=== PATIENT | female | born 1945 | race Caucasian/White ===

== ENCOUNTER 2017-07-12 12:21 | Inpatient (IN) | payer MEDICARE, OTHER ==
[~2017-07-12 12:21] MED LIST: ATOR20TA42 PO; HYDR-2768 PO; IRBE150T49 PO; PIOG15 PO; PRIL20CA PO; ROPI2 PO; SOMA350T PO; [UNRECOGNIZED DRUG - OTHER] PO
[2017-07-12 12:45] VITALS: BP 120/74; PULSE 104; RESP 20; TEMP 97.9; O2SAT 99
[2017-07-12] MEDS ORDERED: NALO1TAB PO (13:07)
[2017-07-12] MEDS ORDERED: OMEP10CA PO (13:07)
[2017-07-12] MEDS ORDERED: DILAUDID PAIN PUMP (13:07)
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
[2017-07-12] MEDS ORDERED: PANTOPRAZOLE SODIUM 40 MG VIAL IV PUSH ONE (13:45)
[2017-07-12] MEDS ORDERED: ONDANSETRON ODT 4 MG TAB PO ONE (13:45)
[2017-07-12 14:17] LABS: AUTOMATED NEUTROPHIL # 13.4 TH/MM3 (1.8-7.7); BASOPHIL # 0.1 TH/MM3 (0-0.2); BASOPHIL % 0.8 % (0.0-2.0); EOSINOPHIL % 0.2 % (0.0-4.0); HEMATOCRIT 33.8 % (35.0-46.0); HEMO FLAGS DIFF FINAL; LYMPH % 11.5 % (9.0-44.0); LYMPHOCYTE # 1.9 TH/MM3 (1.0-4.8); MEAN CELL VOLUME 81.2 FL (80.0-100.0); MEAN CORPUSCULAR HEMOGLOBIN 28.1 PG (27.0-34.0); MEAN CORPUSCULAR HGB CONC 34.6 % (32.0-36.0); MONO % 5.9 % (0.0-8.0); NEUT % 81.6 % (16.0-70.0); PLATELET COUNT 399 TH/MM3 (150-450); RED BLOOD COUNT 4.16 MIL/MM3 (4.00-5.30); WHITE BLOOD COUNT 16.4 TH/MM3 (4.0-11.0)
[2017-07-12 14:53] LABS: ACETAMINOPHEN 4.8 MCG/ML (10.0-30.0); ALKALINE PHOSPHATASE 71 U/L (45-117); ALT (GPT) 35 U/L (10-53); ANION GAP 9 MEQ/L (5-15); AST (GOT) 51 U/L (15-37); BLOOD UREA NITROGEN 17 MG/DL (7-18); CHLORIDE 86 MEQ/L (98-107); GLOMERULAR FILTRATION RATE 44 ML/MIN (>89); SODIUM (NA) 128 MEQ/L (136-145); TOTAL BILIRUBIN ADULT 0.5 MG/DL (0.2-1.0)
[2017-07-12 15:00] LABS: ALCOHOL LESS THAN 3 MG/DL (0-5)
[2017-07-12 15:03] LABS: POTASSIUM 2.2 MEQ/L (3.5-5.1)
[2017-07-12] MEDS ORDERED: POTASSIUM CHLORIDE 20 MEQ CONTROLLED RELEASE TAB PO ONE (15:15)
[2017-07-12 16:13] LABS: BLOOD, URINE NEG (NEG); COMMENT (UR) CULT NOT INDICATED; CULTURE IF INDICATED CULT NOT INDICATED; GLUCOSE,URINE NEG (NEG); KETONE, URINE NEG (NEG); NITRITE,URINE NEG (NEG); SQUAMOUS EPITHELIAL CELL URINE <1 /hpf (0-5); URINE COLOR LIGHT-YELLOW (YELLW/STRAW)
[2017-07-12 16:27] VITALS: BP 137/77; PULSE 88; RESP 18; O2SAT 99
--- NOTE | 2017-07-12 16:36 | PD ---
Physical Exam Date Seen by Provider: Jul 12, 2017 Time Seen by Provider: 16:25 Narrative 72-year-old Crowley act patient previously seen by Yue CANALES, in the ambulance [facility], with reports of homicidal and suicidal ideation, coffee-ground emesis, presumed GI bleed, and possible overdose of Percocet. Noted to be hyponatremic with a sodium 126, and a potassium of 2.2. His been given potassium as well as pantoprazole IV. First Tylenol level is normal at 7.4. The rest of her drug screen and aspirin level is normal. Data Data Last Documented VS Vital Signs Date Time Temp Pulse Resp B/P (MAP) Pulse Ox O2 Delivery O2 Flow Rate FiO2 07/12/17 16:27 88 18 137/77 (97) 99 Room Air 07/12/17 12:45 97.9 Orders Orders Complete Blood Count With Diff (07/12/17 12:45) Comprehensive Metabolic Panel (07/12/17 12:45) Urinalysis - C+S If Indicated (07/12/17 12:45) Psych Screen (07/12/17 12:45) Drug Screen, Random Urine (07/12/17 12:45) Alcohol (Ethanol) (07/12/17 12:45) Salicylates (Aspirin) (07/12/17 12:45) Tylenol (Acetaminophen) (07/12/17 12:45) Electrocardiogram (07/12/17 ) Ondansetron Odt (Zofran Odt) (07/12/17 13:45) Iv Access Insert/Monitor (07/12/17 13:33) Call Poison Control (07/12/17 13:33) Pantoprazole Inj (Protonix Inj) (07/12/17 13:45) Potassium Chloride (Kcl) (07/12/17 15:15) Labs Laboratory Tests Test 07/12/17 13:48 07/12/17 13:51 07/12/17 15:49 Salicylates Level 7.8 MG/DL White Blood Count 16.4 TH/MM3 Red Blood Count 4.16 MIL/MM3 Hemoglobin 11.7 GM/DL Hematocrit 33.8 % Mean Corpuscular Volume 81.2 FL Mean Corpuscular Hemoglobin 28.1 PG Mean Corpuscular Hemoglobin Concent 34.6 % Red Cell Distribution Width 15.0 % Platelet Count 399 TH/MM3 Mean Platelet Volume 8.0 FL Neutrophils (%) (Auto) 81.6 % Lymphocytes (%) (Auto) 11.5 % Monocytes (%) (Auto) 5.9 % Eosinophils (%) (Auto) 0.2 % Basophils (%) (Auto) 0.8 % Neutrophils # (Auto) 13.4 TH/MM3 Lymphocytes # (Auto) 1.9 TH/MM3 Monocytes # (Auto) 1.0 TH/MM3 Eosinophils # (Auto) 0.0 TH/MM3 Basophils # (Auto) 0.1 TH/MM3 CBC Comment DIFF FINAL Differential Comment Blood Urea Nitrogen 17 MG/DL Creatinine 1.20 MG/DL Random Glucose 125 MG/DL Total Protein 9.2 GM/DL Albumin 4.4 GM/DL Calcium Level 10.0 MG/DL Alkaline Phosphatase 71 U/L Aspartate Amino Transf (AST/SGOT) 51 U/L Alanine Aminotransferase (ALT/SGPT) 35 U/L Total Bilirubin 0.5 MG/DL Sodium Level 128 MEQ/L Potassium Level 2.2 MEQ/L Chloride Level 86 MEQ/L Carbon Dioxide Level 33.0 MEQ/L Anion Gap 9 MEQ/L Estimat Glomerular Filtration Rate 44 ML/MIN Acetaminophen Level 4.8 MCG/ML Ethyl Alcohol Level LESS THAN 3 MG/DL Urine Color LIGHT-YELLOW Urine Turbidity CLEAR Urine pH 6.0 Urine Specific [place] 1.007 Urine Protein NEG mg/dL Urine Glucose (UA) NEG mg/dL Urine Ketones NEG mg/dL Urine Occult Blood NEG Urine Nitrite NEG Urine Bilirubin NEG Urine Urobilinogen LESS THAN 2.0 MG/DL Urine Leukocyte Esterase NEG Urine RBC LESS THAN 1 /hpf Urine WBC LESS THAN 1 /hpf Urine Squamous Epithelial Cells <1 /hpf Urine Amorphous Sediment RARE Microscopic Urinalysis Comment CULT NOT INDICATED Urine Opiates Screen NEG Urine Barbiturates Screen NEG Urine Amphetamines Screen NEG Urine Benzodiazepines Screen NEG Urine Cocaine Screen NEG Urine Cannabinoids Screen NEG MDM Medical Record Reviewed: Yes Supervised Visit with ALTA: Yes Differential Diagnosis Suicidal ideation. Homicidal ideation. PTSD. Hyponatremia. Hypokalemia. Upper GI bleed. Reported overdose. Narrative Course Labs are reviewed. Patient warrants hospitalization for hyponatremia, hypokalemia, and repeat acetaminophen levels prior to psychiatric evaluation. Psychiatric evaluation has been ordered. 1630 hrs. call was placed to the hospitalist for admission. Spoke with the resident and agreed to admit the patient. Diagnosis Primary Impression: Suicidal ideation Additional Impressions: Homicidal ideation Hyponatremia Hypokalemia Overdose Qualified Codes: T50.902A - Poisoning by unspecified drugs, medicaments and biological substances, intentional self-harm, initial encounter GI (gastrointestinal bleed) Qualified Codes: K29.71 - Gastritis, unspecified, with bleeding Admitting Information Admitting Physician Requests: Admit Condition: Stable Rojelio Campos Jul 12, 2017 16:36
--- NOTE | 2017-07-12 17:20 | HHI.HP ---
HPI Service Family Medicine Primary Care Physician Unknown Admission Diagnosis Diagnoses: International Travel<30 Days: No Contact w/Intl Traveler<30days: No Known Affected Area: No History of Present Illness 72-year-old female being admitted under Crowley act for suicidal attempt after taking "a handful of pills". History severely limited secondary to patient being uncooperative and drowsy/tired. Initially patient states "I do not know why I am here." However, on further questioning she realizes she is in the hospital. She knows it is July 2017. Patient states she took the pills sometime last night "to get out of my situation." She will not say whether or not she is suicidal. She has took one handful of an assortment of medications including Tylenol, aspirin, and Percocets. Patient states she only took one handful. She took this last night, unknown specific time period. At the time of my evaluation the ED physician contacted poison control and the current recommendations are to obtain a PT/INR, and repeat acetaminophen level tomorrow morning. Systems Limited secondary to patient cooperation. She denies chest pain, fever , chills. She does admit to having nausea and vomiting and some abdominal pain earlier today, but this is now resolved. She is mostly concerned with her who has PTSD. She is concerned with him being by himself. Review of Systems ROS Limitations: Clinical Condition, Altered Mental Status, Uncooperative, Poor Historian Constitutional: DENIES: Fever, Chills Eyes: DENIES: Blurred vision, Diplopia, Eye pain, Vision loss Ears, nose, mouth, throat: COMPLAINS OF: Tinnitus Respiratory: DENIES: Cough, Shortness of breath Cardiovascular: DENIES: Chest pain, Palpitations Gastrointestinal: COMPLAINS OF: Abdominal pain (earlier today, but gone now.), Black stools, Bloody stools, Constipation, Nausea, Vomiting (earlier this morning.), DENIES: Diarrhea Genitourinary: DENIES: Urgency, Dysuria Neurologic: COMPLAINS OF: Abnormal gait, DENIES: Headache Psychiatric: DENIES: Anxiety Past Family Social History Past Medical History Restless legs Chronic pain GERD Past Surgical History Poor historian secondary to current state Back surgery-fusion Pain pump on right lower back Appendectomy Reported Medications "unsure of meds takes" percocets- for back surgery tylenol ropinirole omeprazole Reported Meds & Active Scripts Active Reported Movantik (Naloxegol) 12.5 Mg Tab 12.5 Mg PO DAILY Omeprazole 10 Mg Cap 10 Mg PO DAILY [Dilaudid Pain Pump] Allergies: Coded Allergies: codeine (Unverified Allergy, Severe, N/V, 07/12/17) morphine (Verified Allergy, Unknown, 07/12/17) Sulfa (Sulfonamide Antibiotics) (Unverified Adverse Reaction, Severe, TOPICAL CAUSES RASH, 07/12/17) Family History Mom: Diabetes Dad: no heart disease or diabetes; didn't know him well Social History Tobacco- quit 10 years ago. 1 ppd from 17 years old Alcohol- none illicits: none Physical Exam Vital Signs Vital Signs Date Time Temp Pulse Resp B/P (MAP) Pulse Ox O2 Delivery O2 Flow Rate FiO2 07/12/17 16:27 88 18 137/77 (97) 99 Room Air 07/12/17 13:01 104 18 07/12/17 12:45 97.9 104 20 120/74 (89) 99 Physical Exam GENERAL: Tired-appearing elderly female, lying comfortably in bed. No acute distress. SKIN: No rashes. Cool and dry. HEAD: Atraumatic. Normocephalic. No temporal or scalp tenderness. EYES: Pupils equal round and reactive. Extraocular motions intact. No scleral icterus. No injection or drainage. ENT: Nose without bleeding, purulent drainage or septal hematoma. Throat without erythema, tonsillar hypertrophy or exudate. Uvula midline. Airway patent. NECK: Trachea midline. No JVD or lymphadenopathy. Supple, nontender, no meningeal signs. CARDIOVASCULAR: Regular rate and rhythm without murmurs, gallops, or rubs. RESPIRATORY: Clear to auscultation. Breath sounds equal bilaterally. No wheezes , rales, or rhonchi. GASTROINTESTINAL: Abdomen soft, non-tender, nondistended. No hepato-splenomegaly , or palpable masses. No guarding. MUSCULOSKELETAL: Extremities without clubbing, cyanosis, or edema. No joint tenderness, effusion, or edema noted. No calf tenderness. Negative Homans sign bilaterally. NEUROLOGICAL: Awake and alert. Cranial nerves II through XII intact. Motor and sensory grossly within normal limits. Five out of 5 muscle strength in all muscle groups. Normal speech. Laboratory Laboratory Tests Test 07/12/17 13:48 07/12/17 13:51 07/12/17 15:49 Salicylates Level 7.8 White Blood Count 16.4 Red Blood Count 4.16 Hemoglobin 11.7 Hematocrit 33.8 Mean Corpuscular Volume 81.2 Mean Corpuscular Hemoglobin 28.1 Mean Corpuscular Hemoglobin Concent 34.6 Red Cell Distribution Width 15.0 Platelet Count 399 Mean Platelet Volume 8.0 Neutrophils (%) (Auto) 81.6 Lymphocytes (%) (Auto) 11.5 Monocytes (%) (Auto) 5.9 Eosinophils (%) (Auto) 0.2 Basophils (%) (Auto) 0.8 Neutrophils # (Auto) 13.4 Lymphocytes # (Auto) 1.9 Monocytes # (Auto) 1.0 Eosinophils # (Auto) 0.0 Basophils # (Auto) 0.1 CBC Comment DIFF FINAL Differential Comment Blood Urea Nitrogen 17 Creatinine 1.20 Random Glucose 125 Total Protein 9.2 Albumin 4.4 Calcium Level 10.0 Alkaline Phosphatase 71 Aspartate Amino Transf (AST/SGOT) 51 Alanine Aminotransferase (ALT/SGPT) 35 Total Bilirubin 0.5 Sodium Level 128 Potassium Level 2.2 Chloride Level 86 Carbon Dioxide Level 33.0 Anion Gap 9 Estimat Glomerular Filtration Rate 44 Acetaminophen Level 4.8 Ethyl Alcohol Level LESS THAN 3 Urine Color LIGHT-YELLOW Urine Turbidity CLEAR Urine pH 6.0 Urine Specific [place] 1.007 Urine Protein NEG Urine Glucose (UA) NEG Urine Ketones NEG Urine Occult Blood NEG Urine Nitrite NEG Urine Bilirubin NEG Urine Urobilinogen LESS THAN 2.0 Urine Leukocyte Esterase NEG Urine RBC LESS THAN 1 Urine WBC LESS THAN 1 Urine Squamous Epithelial Cells <1 Urine Amorphous Sediment RARE Microscopic Urinalysis Comment CULT NOT INDICATED Urine Opiates Screen NEG Urine Barbiturates Screen NEG Urine Amphetamines Screen NEG Urine Benzodiazepines Screen NEG Urine Cocaine Screen NEG Urine Cannabinoids Screen NEG Result Diagram: 07/12/17 1351 07/12/17 1351 Caprini VTE Risk Assessment Caprini VTE Risk Assessment: Mod/High Risk (score >= 2) Caprini Risk Assessment Model Point Value = 1 Point Value = 2 Point Value = 3 Point Value = 5 Age 41-60 Minor surgery BMI > 25 kg/m2 Swollen legs Varicose veins or History of unexplained or recurrent spontaneous Oral contraceptives or hormone replacement Sepsis (< 1 month) Serious lung disease, including pneumonia (< 1 month) Abnormal pulmonary function Acute myocardial infarction Congestive heart failure (< 1 month) History of inflammatory bowel disease Medical patient at bed rest Age 61-74 Arthroscopic surgery Major open surgery (> 45 min) Laparoscopic surgery (> 45 min) Malignancy Confined to bed (> 72 hours) Immobilizing plaster cast Central venous access Age >= 75 History of VTE Family history of VTE Factor V Leiden Prothrombin [id number] Lupus anticoagulant Anticardiolipin antibodies Elevated serum homocysteine Heparin-induced thrombocytopenia Other congenital or acquired thrombophilia Stroke (< 1 month) Elective arthroplasty Hip, pelvis, or leg fracture Acute spinal cord injury (< 1 month) Prophylaxis Regimen Total Risk Factor Score Risk Level Prophylaxis Regimen 0-1 Low Early ambulation 2 Moderate Order ONE of the following: *Sequential Compression Device (SCD) *Heparin 5000 units SQ BID 3-4 Higher Order ONE of the following medications: *Heparin 5000 units SQ TID *Enoxaparin/Lovenox 40 mg SQ daily (WT < 150 kg, CrCl > 30 mL/min) *Enoxaparin/Lovenox 30 mg SQ daily (WT < 150 kg, CrCl > 10-29 mL/min) *Enoxaparin/Lovenox 30 mg SQ BID (WT < 150 kg, CrCl > 30 mL/min) AND/OR *Sequential Compression Device (SCD) 5 or more Highest Order ONE of the following medications: *Heparin 5000 units SQ TID (Preferred with Epidurals) *Enoxaparin/Lovenox 40 mg SQ daily (WT < 150 kg, CrCl > 30 mL/min) *Enoxaparin/Lovenox 30 mg SQ daily (WT < 150 kg, CrCl > 10-29 mL/min) *Enoxaparin/Lovenox 30 mg SQ BID (WT < 150 kg, CrCl > 30 mL/min) AND *Sequential Compression Device (SCD) Assessment and Plan Assessment and Plan 72-year-old female admitted under Crowley act for attempt at suicide with medications. Found to be hypokalemic, possible mild AK I. Slightly elevated acetaminophen level. She will be admitted for psychiatric evaluation and for altered mental status. Problem List: (1) Altered mental status ICD Codes: R41.82 - Altered mental status, unspecified Status: Acute Plan: Likely from drug overdose. See below (2) Overdose ICD Codes: T50.901A - Poisoning by unspecified drugs, medicaments and biological substances, accidental (unintentional), initial encounter Status: Acute Plan: Poison control contacted by ED physician. Time of ingestion of pills (Tylenol, Percocet, aspirin) night. Initial acetaminophen 4.8. Salicylate level 7.8. Poison control recommends PT/INR level in the morning. Telemetry Case management consulted Currently Ke[facility] acted Psychiatry consult for attempted suicide (3) Hypokalemia ICD Codes: E87.6 - Hypokalemia Status: Acute Plan: Initial potassium 2.2. 40 meq by mouth given in the emergency room. We'll provide normal saline 125 mL's per hour with 20 mEq potassium chloride per liter Recheck at midnight Telemetry (4) Hyponatremia ICD Codes: E87.1 - Hypo-osmolality and hyponatremia Status: Acute Plan: Mild hyponatremia. Expect improvement with IV fluids. Repeat CMP at midnight and in the morning (5) GERD (gastroesophageal reflux disease) ICD Codes: K21.9 - Gastro-esophageal reflux disease without esophagitis Status: Chronic Plan: Pantoprazole while in the hospital. (6) Chronic pain ICD Codes: G89.29 - Other chronic pain Status: Chronic Plan: Patient takes Percocet and has a Dilaudid pump for chronic low back pain after spinal fusion. She states she was trying to wean herself off of Percocet. We will provide Dilaudid while in the hospital when necessary pain request 6-10 (7) FEN/PPX Status: Acute Plan: Fluids: Normal saline with potassium chloride 125 mL's per hour Electrolytes: Monitor and replace as needed (see above) Nutrition: Nursing to assess bedside swallow. If passes, regular diet Prophylaxis: Heparin Physician Certification 2 Midnight Certification Type: Admission for Inpatient Services Order for Inpatient Services The services are ordered in accordance with Medicare regulations or non- Medicare payer requirements, as applicable. In the case of services not specified as inpatient-only, they are appropriately provided as inpatient services in accordance with the 2-midnight benchmark. Estimated LOS (days): 2 days is the estimated time the patient will need to remain in the hospital, assuming treatment plan goals are met and no additional complications. Post-Hospital Plan: Not yet determined Problem Qualifiers (1) Altered mental status: Qualified Codes: R41.82 - Altered mental status, unspecified (2) Overdose: Qualified Codes: T50.902A - Poisoning by unspecified drugs, medicaments and biological substances, intentional self-harm, initial encounter (3) GERD (gastroesophageal reflux disease): Qualified Codes: K21.9 - Gastro-esophageal reflux disease without esophagitis (4) Chronic pain: Qualified Codes: G89.29 - Other chronic pain João Alcantar MD, R3 Jul 12, 2017 17:20
[2017-07-12] MEDS ORDERED: LACTULOSE SYRUP 20 GM/30 ML CUP PO PRN (18:00)
[2017-07-12] MEDS ORDERED: SENNOSIDES 8.6 MG TAB PO PRN (18:00)
[2017-07-12] MEDS ORDERED: BISACODYL 10 MG SUPP RECTAL PRN (18:00)
[2017-07-12] MEDS: HEPARIN SODIUM - SQ 10,000 UNITS/ML VIAL SQ SCH (18:00)
[2017-07-12] MEDS ORDERED: MAGNESIUM HYDROXIDE SUSP 30 ML CUP PO PRN (18:00)
[2017-07-12] MEDS ORDERED: ONDANSETRON HCL 4 MG/2 ML VIAL IVP PRN (18:15)
[2017-07-12] MEDS ORDERED: HYDROmorphone HCL PF 1 MG/ML VIAL IV PUSH PRN (18:15)
[2017-07-12] MEDS ORDERED: SODIUM CHLORIDE 0.9% FLUSH 10 ML FLUSH IV FLUSH PRN (18:15)
[2017-07-12] MEDS ORDERED: NALOXONE HCL 0.4 MG/ML AMP IV PUSH PRN (18:15)
[2017-07-12] MEDS: NS + KCL 20 MEQ INJ 1,000 ML IV SCH ×2 (18:45→21:17)
[2017-07-12 20:40] VITALS: BP 134/61; PULSE 74; RESP 18; TEMP 97.4; O2SAT 98
[2017-07-12] MEDS: DOCUSATE SODIUM 50 MG/SENNA 8.6 MG TAB PO SCH (21:16)
[2017-07-12] MEDS: SODIUM CHLORIDE 0.9% FLUSH 10 ML FLUSH IV FLUSH SCH (21:17)
[2017-07-12 21:30] VITALS: PULSE 75
[2017-07-13] VITALS: BP 138/65; PULSE 78; RESP 18; TEMP 96.6; O2SAT 98
[2017-07-13 01:53] LABS: ANION GAP 8 MEQ/L (5-15)
[2017-07-13 01:55] LABS: ALKALINE PHOSPHATASE 60 U/L (45-117); ALT (GPT) 25 U/L (10-53); AST (GOT) 34 U/L (15-37); BICARBONATE 34.6 MEQ/L (21.0-32.0); BLOOD UREA NITROGEN 16 MG/DL (7-18); CHLORIDE 87 MEQ/L (98-107); GLOMERULAR FILTRATION RATE 65 ML/MIN (>89); SODIUM (NA) 130 MEQ/L (136-145); TOTAL BILIRUBIN ADULT 0.6 MG/DL (0.2-1.0)
[2017-07-13 01:57] LABS: POTASSIUM 2.1 MEQ/L (3.5-5.1)
[2017-07-13] MEDS ORDERED: POTASSIUM CHLORIDE 20 MEQ CONTROLLED RELEASE TAB PO ONE ×4 (02:15→11:30)
[2017-07-13] MEDS ORDERED: POTASSIUM CHLORIDE 10 MEQ CONTROLLED RELEASE TAB PO ONE (02:45)
[2017-07-13 04:00] VITALS: BP 132/62; PULSE 63; RESP 20; TEMP 96.6; O2SAT 100
[2017-07-13] MEDS: HEPARIN SODIUM - SQ 10,000 UNITS/ML VIAL SQ SCH (04:50)
[2017-07-13 08:00] VITALS: BP 94/55; PULSE 60; RESP 15; TEMP 98; O2SAT 96
[2017-07-13 08:05] LABS: AUTOMATED NEUTROPHIL # 6.1 TH/MM3 (1.8-7.7); BASOPHIL % 0.3 % (0.0-2.0); EOSINOPHIL # 0.1 TH/MM3 (0-0.4); EOSINOPHIL % 0.9 % (0.0-4.0); HEMATOCRIT 29.7 % (35.0-46.0); HEMO FLAGS DIFF FINAL; LYMPHOCYTE # 2.3 TH/MM3 (1.0-4.8); MEAN CELL VOLUME 82.2 FL (80.0-100.0); MEAN CORPUSCULAR HGB CONC 34.1 % (32.0-36.0); NEUT % 66.8 % (16.0-70.0); PLATELET COUNT 323 TH/MM3 (150-450); RED BLOOD COUNT 3.61 MIL/MM3 (4.00-5.30); RED CELL DISTRIBUTION WIDTH 14.8 % (11.6-17.2); WHITE BLOOD COUNT 9.2 TH/MM3 (4.0-11.0)
[2017-07-13 08:09] LABS: INTERNATIONAL NORMALIZED RATIO 1.1 RATIO; PROTHROMBIN TIME - PATIENT 11.4 SEC (9.8-11.6)
[2017-07-13 08:36] LABS: ALKALINE PHOSPHATASE 65 U/L (45-117); ALT (GPT) 23 U/L (10-53); ANION GAP 9 MEQ/L (5-15); AST (GOT) 37 U/L (15-37); BLOOD UREA NITROGEN 13 MG/DL (7-18); CHLORIDE 88 MEQ/L (98-107); GLOMERULAR FILTRATION RATE 69 ML/MIN (>89); POTASSIUM 3.2 MEQ/L (3.5-5.1); SODIUM (NA) 130 MEQ/L (136-145); TOTAL BILIRUBIN ADULT 0.7 MG/DL (0.2-1.0)
[2017-07-13 08:41] LABS: ACETAMINOPHEN LESS THAN 2.0 MCG/ML (10.0-30.0)
[2017-07-13 08:50] VITALS: O2SAT 99
[2017-07-13] MEDS ORDERED: PANTOPRAZOLE SOD 40 MG DELAYED RELEASE TAB PO SCH (09:00)
[2017-07-13] MEDS: DOCUSATE SODIUM 50 MG/SENNA 8.6 MG TAB PO SCH (09:00)
[2017-07-13] MEDS: SODIUM CHLORIDE 0.9% FLUSH 10 ML FLUSH IV FLUSH SCH (09:00)
[2017-07-13] MEDS: NS + KCL 20 MEQ INJ 1,000 ML IV SCH (09:38)
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
[2017-07-13] MEDS ORDERED: PILL SPLITTER OTHER PRN (13:15)
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
[2017-07-13] MEDS ORDERED: SERO25TA PO (15:10)
--- NOTE | 2017-07-13 15:11 | HHI.DCPOC ---
Discharge Care Plan Diagnosis: (1) Overdose (2) Suicidal ideation (3) Hypokalemia (4) Hyponatremia Goals to Promote Your Health * To prevent worsening of your condition and complications, follow-up with a primary care physician and psychiatrist following hospital discharge. Directions to Meet Your Goals Take your medications as prescribed Follow your dietary instruction Follow activity as directed Keep your appointments as scheduled Take your immunizations and boosters as scheduled If your symptoms worsen call your PCP, if no PCP go to Urgent Care Center or Emergency Room Smoking is Dangerous to Your Health. Avoid second hand smoke Call the 24-hour hour crisis hotline for domestic abuse at Brian Tyson MD R2 Jul 13, 2017 15:11
[2017-07-13 16:00] VITALS: BP 90/52; PULSE 68; RESP 16; TEMP 96.3; O2SAT 95
--- NOTE | 2017-07-13 16:12 | EKG ---
Date Performed: 07/12/2017 Time Performed: 16:37:32 PTAGE: 72 years EKG: Sinus rhythm NONSPECIFIC ST & T-WAVE ABNORMALITY BORDERLINE ECG NO PREVIOUS TRACING DOCTOR: Roberto San Interpretating Date/Time 07/13/2017 16:11:07
--- NOTE | 2017-07-13 16:13 | EKG ---
Date Performed: 07/13/2017 Time Performed: 03:49:20 PTAGE: 72 years EKG: Sinus rhythm ST junctional depression is nonspecific Borderline ECG Since PREVIOUS TRACING , no significant change noted PREVIOUS TRACIN07/12/2017 16.37.32 DOCTOR: Roberto San Interpretating Date/Time 07/13/2017 16:11:49
[2017-07-14] MEDS ORDERED: QUEtiapine FUMARATE 25 MG TAB PO SCH (09:00)
== END 2017-07-13 16:59 | DRG 918 ==
LOC: NEDAMB 12:21 → NEDA 17:11 → N07B 19:42
PROVIDERS: ADMIT Family Medicine; ATTEND Family Medicine
DX: T40.2X2A Poisoning by other opioids, intentional self-harm, initial encounter (principal); T39.1X2A Poisoning by 4-Aminophenol derivatives, intentional self-harm, initial encounter; T39.012A Poisoning by aspirin, intentional self-harm, initial encounter; K92.2 Gastrointestinal hemorrhage, unspecified; F05 Delirium due to known physiological condition; E87.1 Hypo-osmolality and hyponatremia; R45.850 Homicidal ideations; E11.9 Type 2 diabetes mellitus without complications; I10 Essential (primary) hypertension; M19.90 Unspecified osteoarthritis, unspecified site; Y92.239 Unspecified place in hospital as the place of occurrence of the external cause; E78.00 Pure hypercholesterolemia, unspecified; K21.9 Gastro-esophageal reflux disease without esophagitis; R19.5 Other fecal abnormalities; E87.6 Hypokalemia; G25.81 Restless legs syndrome; Z87.891 Personal history of nicotine dependence; Z98.1 Arthrodesis status; M54.5 Low back pain; G89.28 Other chronic postprocedural pain; H35.30 Unspecified macular degeneration
CPT/HCPCS: 80053; 80307; 81001; 83735; 84132; 85025; 85610; 93005; J1644; J3480

== ENCOUNTER 2017-07-13 16:17 | Inpatient (IN) | payer MEDICARE, OTHER ==
[~2017-07-13] VITALS: Ht 162.6 cm; Wt 58.0 kg
[~2017-07-13 16:17] MED LIST changes: -ATOR20TA42 PO; +DILAUDID PAIN PUMP; -HYDR-2768 PO; -IRBE150T49 PO; +NALO1TAB PO; +OMEP10CA PO; -PIOG15 PO; -PRIL20CA PO; -ROPI2 PO; +SERO25TA PO; -SOMA350T PO; -[UNRECOGNIZED DRUG - OTHER] PO
[2017-07-13 18:29] VITALS: BP 84/51; PULSE 75; RESP 16; TEMP 98.1; O2SAT 99
[2017-07-13] MEDS ORDERED: MAGNESIUM HYDROXIDE SUSP 30 ML CUP PO PRN (18:30)
[2017-07-13] MEDS ORDERED: ALUMINUM/MAGNESIUM/SIMETH 30 ML CUP PO PRN (18:30)
[2017-07-13] MEDS: PANTOPRAZOLE SOD 20 MG DELAYED RELEASE TAB PO SCH (18:30)
[2017-07-13] MEDS ORDERED: LORazepam 2 MG/ML VIAL IM PRN ×2 (18:30)
[2017-07-13] MEDS: NICOTINE 21 MG/24 HR PATCH T-DERMAL SCH (18:30)
[2017-07-13] MEDS ORDERED: PILL SPLITTER OTHER PRN (18:45)
[2017-07-13 18:55] VITALS: BP 163/70
[2017-07-13] MEDS: LORazepam 0.5 MG TAB PO PRN (21:03)
[2017-07-14 06:03] VITALS: BP 147/65; PULSE 83; RESP 18; TEMP 98; O2SAT 98
[2017-07-14] MEDS: NICOTINE 21 MG/24 HR PATCH T-DERMAL SCH (09:00)
[2017-07-14] MEDS: REMOVE OLD PATCH T-DERMAL SCH (09:00)
--- NOTE | 2017-07-14 09:03 | HHI.FPPN ---
Subjective Remarks No acute events overnight. Afebrile, BPs noted to be ranging 80s-160s/50s-70s. Patient seen and examined this AM. Patient this morning complains of remaining disoriented and confused as to the events that brought her to the hospital. It was explained to her the discussion Dr. Chapin had with her regarding the incidences that took place at home. She denied any chest pain or pressure, fevers, shortness of breath, pain anywhere. She stated she had one episode of loose stool yesterday evening. No BMs since. No abdominal pain, N/V. (Brian Tyson MD R2) Objective Vitals Vital Signs Date Time Temp Pulse Resp B/P (MAP) Pulse Ox O2 Delivery O2 Flow Rate FiO2 07/14/17 06:03 98.0 83 18 147/65 (92) 98 07/13/17 18:55 163/70 (101) 07/13/17 18:29 98.1 75 16 84/51 (62) 99 I/O 07/13/17 07/13/17 07/13/17 07/14/17 07/14/17 07/14/17 07:00 15:00 23:00 07:00 15:00 23:00 Intake Total 240 ml 480 ml 480 ml Output Total 1 ml Balance 240 ml 479 ml 480 ml Intake Oral 240 ml 480 ml 480 ml Output Urine Total 1 ml # Voids 1 (Brian Tyson MD R2) Objective Remarks GENERAL: NAD, lying comfortably in bed NEURO: Alert. Oriented x4. Normal speech. ragman grossly intact. Motor grossly normal. SKIN: Warm and dry. No rashes or erythema. HEAD: Normocephalic. Atraumatic. EYES: EOMI. No scleral icterus. No injection or drainage. ENT: No nasal drainage. Moist mucous membranes. NECK: Supple. No JVD. CARDIOVASCULAR: Regular rate and rhythm, early systolic blowing murmur heard best along left upper sternal border RESPIRATORY: Breath sounds clear to auscultation and equal bilaterally, without wheezes, rales, or rhonchi. No accessory muscle use. GASTROINTESTINAL: Abdomen soft, nontender, nondistended MUSCULOSKELETAL: No lower extremity edema. Normal range of motion. BACK: Nontender without obvious deformity. (Brian Tyson MD R2) A/P Assessment and Plan 72-year-old female admitted under Crowley act for suicidal attempt, found to have hypokalemia and hyponatremia on admission. Patient is medically stable and has been transferred to med/psych unit. (Brian Tyson MD R2) Attending Attestation Patient seen and examined. Case reviewed and discussed with the resident team. Agree with plan of care as discussed with me and documented in the resident note. (Brittni Alcantar MD) Problem List: (1) Overdose ICD Codes: T50.901A - Poisoning by unspecified drugs, medicaments and biological substances, accidental (unintentional), initial encounter Status: Acute Plan: Tylenol level 4.8 -> less than 2.0 UDS negative Psychiatry consulted - admitted to med/psych unit for stabilization and safety (2) Hypokalemia ICD Codes: E87.6 - Hypokalemia Status: Acute Plan: Improving, K+ 3.2 this AM Replete orally with 30 mEq KCl Continue to monitor Mg level nml 2.0 (3) Hyponatremia ICD Codes: E87.1 - Hypo-osmolality and hyponatremia Status: Chronic Plan: Likely chronic and stable Continue to monitor May place on fluid restriction, regular diet for now (4) GERD (gastroesophageal reflux disease) ICD Codes: K21.9 - Gastro-esophageal reflux disease without esophagitis Status: Chronic Plan: Continue protonix 10 mg po daily (5) Chronic pain ICD Codes: G89.29 - Other chronic pain Status: Chronic Plan: Patient has a pain pump in place, following with [facility] at [place] as outpatient Patient does not require anything additional to this (6) FEN/PPX Status: Acute Plan: Fluids: PO Electrolytes: as above, continue to monitor Nutrition: Regular (Brian Tyson MD R2) Brian Tyson MD R2 Jul 14, 2017 09:03 Brittni Alcantar MD Jul 14, 2017 12:18
[2017-07-14 09:27] LABS: ANION GAP 6 MEQ/L (5-15); BICARBONATE 27.6 MEQ/L (21.0-32.0); BLOOD UREA NITROGEN 9 MG/DL (7-18); CHLORIDE 97 MEQ/L (98-107); GLOMERULAR FILTRATION RATE 79 ML/MIN (>89); HDL CHOLESTEROL 65.2 MG/DL (40.0-60.0); LDL CHOLESTEROL 77 MG/DL (0-99); POTASSIUM 3.3 MEQ/L (3.5-5.1); SODIUM (NA) 131 MEQ/L (136-145)
[2017-07-14] MEDS ORDERED: POTASSIUM CHLORIDE 10 MEQ CONTROLLED RELEASE TAB PO ONE (09:45)
[2017-07-14] MEDS: QUEtiapine FUMARATE 25 MG TAB PO SCH ×2 (10:35→12:00)
[2017-07-14] MEDS: PANTOPRAZOLE SOD 20 MG DELAYED RELEASE TAB PO SCH (10:35)
--- NOTE | 2017-07-14 11:15 | HHI.HP ---
Provisional Diagnosis Admission Date Jul 13, 2017 at 17:05 [place] I. Delirium Certification of Person's Competence To Provide Express and Informed Consent I have personally examined Reena Vides , a person being served at [facility] on, Jul 14, 2017 10:54. Express and informed consent means consent voluntarily given in writing, by a competent person, after sufficient explanation and disclosure of the subject matter involved to enable the person to make a knowing and willful decision without any element of force, fraud, deceit, duress, or other form of constraint or coercion. This person is 18 years of age or older, is not now known to be incompetent to consent to treatment with a guardian advocate, and does not have a health care surrogate or proxy currently making medical treatment decisions. I have found this person to be one of the following: [x] Competent to provide express and informed consent, as defined above, for voluntary admission to this facility and is competent to provide express and informed consent for treatment. He/she has the consistent capacity to make well reasoned, willful, and knowing decisions concerning his or her medical or mental health treatment. The person fully and consistently understands the purpose of the admission for examination/placement and is fully capable of personally exercising all rights assured [place] Incompetent to provide express and informed consent to voluntary admission, and this is incompetent to provide express and informed consent to treatment. The person must be transferred to involuntary status and a petition for a guardian advocate filed with the Circuit Court. [] Refusing to provide express and informed consent to voluntary admission but is competent to provide express and informed consent for treatment. The person must be discharged or transferred to involuntary status. Form shall be completed within 24 hours of a person's arrival at the receiving facility and filed in the clinical record of each person: 1. Admitted on a voluntary basis 2. Permitted to provide express and informed consent to his/her own treatment 3. Allowed to transfer from involuntary to voluntary status 4. Prior to permitting a person to consent to his or her own treatment after having been previously found incompetent to consent to treatment. History of Present Illness Capacity: Has Capacity HPI Patient is a 72-year-old woman, , domicile with , unemployed and supported by her 's usp funds, with no past psychiatric history, who was admitted to the medical floor recently due to recent overdose of Percocet in a suicide attempt along with having homicidal ideations which patient was holding has been at [facility] and noted to be confused and disorganized during psychiatric consultation visit. Patient was managed for hypokalemia, hyponatremia while on the medical floor and noted transferred to the inpatient psychiatry for further evaluation and management. As per psychiatric consult note: The patient is a 72-year-old woman, domiciled with her in [place], will denies previous psychiatric history, psychiatric hospitalizations who denies previous suicidal attempts, denies history of substance abuse, but patient is not fully reliable due to level of confusion. No collateral information available at this moment, who was admitted under Crowley act for suicidal attempt after taking "a handful of pills". Initially: "History severely limited secondary to patient being uncooperative and drowsy/ tired. Initially patient states "I do not know why I am here." However, on further questioning she realizes she is in the hospital. She knows it is July 2017. Patient states she took the pills sometime last night "to get out of my situation." She will not say whether or not she is suicidal. She has took one handful of an assortment of medications including Tylenol, aspirin , and Percocets. Patient states she only took one handful. She took this last night, unknown specific time period. At the time of my evaluation the ED physician contacted poison control and the current recommendations are to obtain a PT/INR, and repeat acetaminophen level tomorrow morning.Systems Limited secondary to patient cooperation. She denies chest pain, fever, chills. She does admit to having nausea and vomiting and some abdominal pain earlier today, but this is now resolved. She is mostly concerned with her who has PTSD. She is concerned with him being by himself." Tried to contact her by phone in two different occasions, , for collateral information, but he did not answer the phone. Chart was reviewed. Case discussed with nursing charge. On psychiatric evaluation patient is found in her room, she is trying to disrobed stating she is "heating". Patient says that she doesn't understand the reason she is here. But, she doesn't know what she is. She is irritable, oppositional, seems to be very confused and internally preoccupied. Patient says that she doesn't understand what she is naked "and who stole my clothing". Patient says that she doesn't remember trying to commit suicide. He does report that she has been overwhelmed, frustrated, depressed. She says that at this moment any information about her children be asked to her . At this moment she denies suicidal and homicidal ideation, she denies visual and auditory hallucinations. She denies the use of alcohol and illicit drugs. Patient was found lying in hospital bed, cooperative. Patient states that she does not recall all of the events prior to this admission and states that she remembers having picked up a couple of guns which she pointed at her and noted that she had been feeling confused but states that she did not have intention to hurt herself or her . Patient believes that she had argument with her prior to these events state that they could not get the Lexapro (to work and she had felt confused and felt that they were going to because they could not get anything to work. Patient states that she believes she had taken some "sort of medicines and that thought of killing myself". Patient states that she also feared that if her downloaded a program on the computer would wipe other accounts which she stated that he called 91 the next day. When asked about the firearms she states that she recalls having to guns in her hands and that she was "holding my has been at bay " which is pointing a gun at him and was aware that there will noted pistols. She states that she feels that her pain pump must have been involved in some way and recalls taking "handful of Percocet" and attempt to kill herself but then regretted afterwards. Currently patient states that she is feeling good this morning and not so good now talking about recent events. Patient noted to be upset talking about circumstances that prior to the hospital. At this time denies SI, HI, AVH or delusions. Continues to noted to be confused. It was reported by the patient's therapist the patient has become frustrated and resistant to formal cognitive testing. Past psychiatric history: Denies previous psychiatric diagnoses denies previous psychiatric hospitalizations, suicide attempts or self-injurious behavior. Denies history of physical or sexual abuse. Family history: Denies Substance use history: Tobacco use more than 10 years ago. Denies any alcohol or illicit drug use. Past medical history: HTN?, GERD Allergies: Sulfas, morphine, codeine Social history: Domiciled with , has two adult children one whom she is contact with and the other estranged, unemployed supported by her 's usp benefits, no background, scientology: [employer], no legal history. Collateral contacts:Fior Vides () [phone]; jade (sister) [phone] Past Psych History Psychological trauma history denies Violence risk - others (6 mos) elevated Violence risk - self (6 mos) elevated due to recent suicide attempt via overdose Substance Abuse History Drugs/Alcohol past 12 months Tobacco use more than 10 years ago. Denies any alcohol or illicit drug use. Past Family Social History Coded Allergies: codeine (Unverified Allergy, Severe, N/V, 07/12/17) morphine (Verified Allergy, Unknown, 07/12/17) Sulfa (Sulfonamide Antibiotics) (Unverified Adverse Reaction, Severe, TOPICAL CAUSES RASH, 07/12/17) Active Scripts Quetiapine (Seroquel) 25 Mg Tab, 12.5 MG PO BID@,, #30 TAB Prov:Brian Tyson MD R2 07/13/17 Reported Medications Naloxegol (Movantik) 12.5 Mg Tab, 12.5 MG PO DAILY for Prevent Constipation, # 30 TAB 0 Refills 07/12/17 Omeprazole (Omeprazole) 10 Mg Cap, 10 MG PO DAILY, #30 CAP 0 Refills 07/12/17 [Dilaudid Pain Pump] No Conflict Check 07/12/17 Current Medications Medications (Trade) Dose Ordered Sig/Karel Route Start Time Stop Time Status Last Admin (SEROquel) 12.5 mg BID@09,12 PO 07/14/17 09:00 07/14/17 10:35 (Protonix) 10 mg DAILY PO 07/13/17 18:30 07/14/17 10:35 (Ativan) 1 mg Q6H PRN PO 07/13/17 18:30 (Ativan Inj) 1 mg Q6H PRN IM 07/13/17 18:30 (Ativan) 0.5 mg Q12H PRN PO 07/13/17 18:30 07/13/17 21:03 (Ativan Inj) 0.5 mg Q12H PRN IM 07/13/17 18:30 (Tylenol) 650 mg Q4H PRN PO 07/13/17 18:30 (Milk Of Magnesia Liq) 30 ml DAILY PRN PO 07/13/17 18:30 (Mag-Al Plus Susp Liq) 30 ml Q6H PRN PO 07/13/17 18:30 (Habitrol 21 Mg Patch.24 Hr) 1 patch DAILY T-DERMAL 07/13/17 18:30 Miscellaneous Information 1 DAILY T-DERMAL 07/14/17 09:00 (Pill Splitter) 1 ea UNSCH PRN OTHER 07/13/17 18:45 Family Psych History denies Social History Domiciled with , has two adult children one whom she is contact with and the other estranged, unemployed supported by her 's usp benefits, no background, scientology: [employer], no legal history. Patient's Strengths (min. 2) Verbal and communicative Physical Exam Patient not noted to be in acute distress, no gross motor abnormalities, no tremors or EPS, no noted psychomotor retardation or agitation. Vital Signs Vital Signs Date Time Temp Pulse Resp B/P (MAP) Pulse Ox O2 Delivery O2 Flow Rate FiO2 07/14/17 06:03 98.0 83 18 147/65 (92) 98 I/O 07/14/17 07/14/17 07/15/17 08:00 16:00 00:00 Intake Total 480 ml 480 ml Output Total 1 ml Balance 479 ml 480 ml Lab Results Labs reviewed. Test 07/14/17 08:08 Blood Urea Nitrogen 9 MG/DL Creatinine 0.72 MG/DL Random Glucose 119 MG/DL Calcium Level 8.9 MG/DL Sodium Level 131 MEQ/L Potassium Level 3.3 MEQ/L Chloride Level 97 MEQ/L Carbon Dioxide Level 27.6 MEQ/L Anion Gap 6 MEQ/L Estimat Glomerular Filtration Rate 79 ML/MIN Triglycerides Level 133 MG/DL Cholesterol Level 169 MG/DL LDL Cholesterol 77 MG/DL HDL Cholesterol 65.2 MG/DL Cholesterol/HDL Ratio 2.59 RATIO Mental Status Examination Appearance: Appropriate Consciousness: Alert Orientation: Person, Place Speech: Unremarkable Language: Adequate Fund of Knowledge: Adequate Attention and Concentration: Inadequate Memory: Impaired Mood: Anxious, Irritable Affect: Irritable, Anxious Thought Process & Associations: Linear Thought Content: Appropriate Hallucination Type: None Delusion Type: None Suicidal Ideation: Yes (denies at this time) Suicidal Plan: No Suicidal Intention: Yes Homicidal Ideation: Yes (denies at this time) Homicidal Plan: No Homicidal Intention: No Insight: Poor Judgment: Poor Assessment & Plan Problem List: (1) Delirium due to another medical condition ICD Codes: F05 - Delirium due to known physiological condition Assessment & Plan Patient is a 72-year-old woman with no past psychiatric history recently admitted to the medical floor for hypokalemia and hyponatremia as well as recent suicide attempt via overdose and having threatened her with to firearms at gunpoint in the context of likely delirium from metabolic disturbances and recent ingestion of opiate analgesics at that time. Patient continues to have hypokalemia and hyponatremia which is being followed by medical team at this time. Continue recommendations as per primary medical team. Patient still noted to be confused and distraught due to recent events and continues to likely have delirium secondary to current medical issues. We' ll continue quetiapine 2.5 by mouth twice a day. Collateral freshen pending from and son. Attempt to assess patient's current neurocognitive function has been unsuccessful due to patient resistance to comply with testing. We'll continue to try to have formal testing has patient improves medically. Discharge planning in progress Discharge Planning Patient not noted to be in acute distress, no gross motor abnormalities, no tremors or EPS, no noted psychomotor retardation or agitation. Valente Hebert MD Jul 14, 2017 11:15
[2017-07-14 13:37] LABS: HEMOGLOBIN A1a 1.3 %; HEMOGLOBIN A1b 1.5 %; HEMOGLOBIN Ao 85.3 %; HEMOGLOBIN LA1C 2.1 %; HEMOGLOBIN P3 3.7 %
[2017-07-14 18:29] VITALS: BP 124/58; PULSE 99; RESP 17; TEMP 98.2; O2SAT 98
--- NOTE | 2017-07-14 22:08 | RADRPT ---
EXAM DATE/TIME: 07/14/2017 21:09 [place] COMPARISON: No previous studies available for comparison. INDICATIONS : Head pain due to fall on right side. RADIATION DOSE: 47.45 CTDIvol (mGy) MEDICAL HISTORY : Cardiovascular disease. Hypertension. Diabetes mellitus type 2. SURGICAL HISTORY : Rhinoplasty. ENCOUNTER: Initial ACUITY: 1 day PAIN SCALE: 4/10 LOCATION: Right occipital region. TECHNIQUE: Multiple contiguous axial images were obtained of the head. Using automated exposure control and adj ustment of the mA and/or kV according to patient size, radiation dose was kept as low as reasonably a chievable to obtain optimal diagnostic quality images. DICOM format image data is available electro nically for review and comparison. FINDINGS: CEREBRUM: The ventricles are normal for age. No evidence of midline shift, mass lesion, hemorrhage or acute in farction. No extra-axial fluid collections are seen. POSTERIOR FOSSA: The cerebellum and brainstem are intact. The 4th ventricle is midline. The cerebellopontine angle i s unremarkable. EXTRACRANIAL: The visualized portion of the orbits is intact. SKULL: The calvaria is intact. No evidence of skull fracture. CONCLUSION: No acute disease. Rafael Ferrer MD on July 14, 2017 at 22:06 Board Certified Radiologist. This report was verified electronically.
[2017-07-15 06:23] VITALS: BP 102/50; PULSE 88; RESP 16; O2SAT 94
[2017-07-15] MEDS: PANTOPRAZOLE SOD 20 MG DELAYED RELEASE TAB PO SCH (07:56)
[2017-07-15] MEDS: QUEtiapine FUMARATE 25 MG TAB PO SCH ×2 (07:56→12:00)
[2017-07-15] MEDS: LORazepam 0.5 MG TAB PO PRN (07:57)
[2017-07-15] MEDS: NICOTINE 21 MG/24 HR PATCH T-DERMAL SCH (08:02)
[2017-07-15] MEDS: REMOVE OLD PATCH T-DERMAL SCH (08:02)
--- NOTE | 2017-07-15 08:40 | HHI.PYPN ---
Subjective Remarks Patient seen for follow-up, chart reviewed. Discussion with nursing staff reported that she continues to have some confusion but noted be calm and cooperative. CT scan of the head was negative for any acute findings. Patient was found sitting in hospital bed with breakfast tray noted to be tearful and crying stating that she did not know what to do. When asked to clarify what she was having difficulty with she says everything. Patient noted to be very upset labile stating "just kill me now". Patient states that she does not remember how to do things. When asked if she had been visited by her family yesterday she states "I don't know", when asked if she needs help with eating she states "I don't know". Patient expressed frustration that she cannot see stating that she has macular degeneration but that "nobody believes me". Patient did state she has glasses which she uses to help her see which that we' ll try to require later today after contacting family. Review of Systems Except as stated in HPI: all other systems reviewed are Neg Mental Status Examination Appearance: Appropriate Consciousness: Alert Orientation: Person, Place Speech: Unremarkable Language: Adequate Fund of Knowledge: Adequate Attention and Concentration: Inadequate Memory: Impaired Mood: Sad, Anxious, Irritable Affect: Irritable, Labile, Anxious, Other (tearful and crying) Thought Process & Associations: Linear Thought Content: Appropriate Hallucination Type: None Delusion Type: None Suicidal Ideation: Yes (denies at this time) Suicidal Plan: No Suicidal Intention: Yes Homicidal Ideation: Yes (denies at this time) Homicidal Plan: No Homicidal Intention: No Insight: Poor Judgment: Poor Results Vitals/IOs Vital Signs Date Time Temp Pulse Resp B/P (MAP) Pulse Ox O2 Delivery O2 Flow Rate FiO2 07/15/17 06:23 88 16 102/50 (67) 94 07/14/17 18:29 98.2 Intake and Output 07/15/17 07/15/17 07/16/17 08:00 16:00 00:00 Intake Total 120 ml Balance 120 ml Assessment & Plan Problem List: (1) Delirium due to another medical condition ICD Codes: F05 - Delirium due to known physiological condition Assessment & Plan Estimated LOS: days Justification for Cont. Inpt. Patient this time the to be very labile, tearful, crying, unable to participate effectively to interview due to her current emotional state. Patient was provided with her morning medications along with Ativan 0.5 mg by mouth daily for anxiety/agitation. We'll increase quetiapine to 25 mg by mouth twice daily for mood stabilization. As per report patient was visited by her last evening. We'll attempt to obtain collateral information on how the visit went. Continue recommendations as per primary medical team. Patient has refused formal testing of memory and due to current mood today last be deferred for now. Discharge planning in progress. Discharge Planning Patient to return back to her residence was psychiatrically stable. Valente Hebert MD Jul 15, 2017 08:40
[2017-07-15] MEDS ORDERED: QUEtiapine FUMARATE 25 MG TAB PO SCH (09:00)
--- NOTE | 2017-07-15 09:02 | HHI.FPPN ---
Subjective Remarks No acute events overnight. Afebrile, vitals stable. Patient seen and examined this AM. Patient is tearful, complaining of still being confused with the series of events bringing her to the hospital. She denies pain, fevers/chills, CP, SOB, abdominal pain. RN reports she is walking with the use of her walker. Objective Vitals Vital Signs Date Time Temp Pulse Resp B/P (MAP) Pulse Ox O2 Delivery O2 Flow Rate FiO2 07/15/17 06:23 88 16 102/50 (67) 94 07/14/17 18:29 98.2 99 17 124/58 (80) 98 I/O 07/14/17 07/14/17 07/14/17 07/15/17 07/15/17 07/15/17 07:00 15:00 23:00 07:00 15:00 23:00 Intake Total 480 ml 480 ml 3600 ml 120 ml Output Total 1 ml Balance 479 ml 480 ml 3600 ml 120 ml Intake Oral 480 ml 480 ml 3600 ml 120 ml Output Urine Total 1 ml # Voids 1 7 1 Result Diagram: 07/14/17 0808 Objective Remarks GENERAL: Tearful, lying in bed NEURO: Alert. Oriented x4. Normal speech. commercial lines underwriter grossly intact. Motor grossly normal. SKIN: Warm and dry. No rashes or erythema. HEAD: Normocephalic. Atraumatic. EYES: EOMI. No scleral icterus. No injection or drainage. ENT: No nasal drainage. Moist mucous membranes. NECK: Supple. No JVD. CARDIOVASCULAR: Regular rate and rhythm, early systolic blowing murmur heard best along left upper sternal border RESPIRATORY: Breath sounds clear to auscultation and equal bilaterally, without wheezes, rales, or rhonchi. No accessory muscle use. GASTROINTESTINAL: Abdomen soft, nontender, nondistended MUSCULOSKELETAL: No lower extremity edema. Normal range of motion. BACK: Nontender without obvious deformity. A/P Assessment and Plan 72-year-old female admitted under Crowley act for suicidal attempt, found to have hypokalemia and hyponatremia on admission. Patient is medically stable and has been transferred to med/psych unit. Problem List: (1) Overdose ICD Codes: T50.901A - Poisoning by unspecified drugs, medicaments and biological substances, accidental (unintentional), initial encounter Status: Acute Plan: Tylenol level 4.8 -> less than 2.0 UDS negative Psychiatry consulted - admitted to med/psych unit for stabilization and safety (2) Hypokalemia ICD Codes: E87.6 - Hypokalemia Status: Acute Plan: Improving, continue to monitor and replete as needed Mg level nml 2.0 (3) Hyponatremia ICD Codes: E87.1 - Hypo-osmolality and hyponatremia Status: Chronic Plan: Likely chronic and stable Continue to monitor May place on fluid restriction, regular diet for now (4) GERD (gastroesophageal reflux disease) ICD Codes: K21.9 - Gastro-esophageal reflux disease without esophagitis Status: Chronic Plan: Continue protonix 10 mg po daily (5) Chronic pain ICD Codes: G89.29 - Other chronic pain Status: Chronic Plan: Patient has a pain pump in place, following with [facility] [place] [facility] outpatient (6) FEN/PPX Status: Acute Plan: Fluids: PO Electrolytes: as above, continue to monitor Nutrition: Regular Brian Tyson MD R2 Jul 15, 2017 09:02
[2017-07-15 09:08] LABS: BICARBONATE 27.4 MEQ/L (21.0-32.0); MAGNESIUM 1.7 MG/DL (1.5-2.5); POTASSIUM 3.4 MEQ/L (3.5-5.1)
[2017-07-15] MEDS: POTASSIUM CHLORIDE 20 MEQ CONTROLLED RELEASE TAB PO ONE (10:15)
[2017-07-15] MEDS ORDERED: QUEtiapine FUMARATE 25 MG TAB PO ONE (11:45)
[2017-07-15 18:00] VITALS: BP 128/62; RESP 16; TEMP 97.9; O2SAT 97
[2017-07-15] MEDS: LORazepam 1 MG TAB PO PRN (20:42)
[2017-07-15] MEDS: ACETAMINOPHEN 325 MG TAB PO PRN (20:43)
[2017-07-16 06:00] VITALS: BP 138/73; PULSE 70; RESP 17; TEMP 98.4; O2SAT 100
--- NOTE | 2017-07-16 08:08 | HHI.PYPN ---
Subjective Remarks Patient seen for follow-up, chart reviewed. Discussion she staff reported the patient slept well last night continue slightly irritable when asked to remember certain things, and noted to be somewhat depressed. Patient was found sitting in hospital bed, cooperative, guarded and slightly irritable today. Patient stated that she slept fine, mood has been "fine", no problems eating or drinking states he is able to complete to the bathroom without any issues or problems. Patient stated that she was visited by her yesterday was having difficulty remembering how it went. Patient requests having her clothes so she can use them while on the unit. Patient denies any SI, HI, AVH or delusions at this time but her memory appears to be impaired which is likely neurocognitive in nature. Review of Systems Except as stated in HPI: all other systems reviewed are Neg Mental Status Examination Appearance: Appropriate Consciousness: Alert Orientation: Person, Place Speech: Unremarkable Language: Adequate Fund of Knowledge: Adequate Attention and Concentration: Inadequate Memory: Impaired Mood: Sad, Irritable (slightly) Affect: Irritable, Labile, Anxious Thought Process & Associations: Linear Thought Content: Appropriate Hallucination Type: None Delusion Type: None Suicidal Ideation: Yes (denies at this time) Suicidal Plan: No Suicidal Intention: No Homicidal Ideation: No Homicidal Plan: No Homicidal Intention: No Insight: Poor Judgment: Poor Results Labs Labs reviewed. Test 07/15/17 08:11 Blood Urea Nitrogen 9 MG/DL Creatinine 0.72 MG/DL Random Glucose 103 MG/DL Calcium Level 9.1 MG/DL Magnesium Level 1.7 MG/DL Sodium Level 134 MEQ/L Potassium Level 3.4 MEQ/L Chloride Level 98 MEQ/L Carbon Dioxide Level 27.4 MEQ/L Anion Gap 9 MEQ/L Estimat Glomerular Filtration Rate 79 ML/MIN Vitals/IOs Vital Signs Date Time Temp Pulse Resp B/P (MAP) Pulse Ox O2 Delivery O2 Flow Rate FiO2 07/16/17 06:00 98.4 70 17 138/73 (94) 100 Intake and Output 07/16/17 07/16/17 07/17/17 08:00 16:00 00:00 Intake Total 240 ml Balance 240 ml Assessment & Plan Problem List: (1) Delirium due to another medical condition ICD Codes: F05 - Delirium due to known physiological condition Assessment & Plan Patient at this time continues to be noted to be slightly irritable, continues of frustrated and upset when asked to remember recall things. Formal cognitive testing have been unsuccessful previously as she was very resistant to it but will attempt to assess again. Patient likely with neurocognitive deficits to have been progressive as collateral from with nursing staff yesterday reported that the patient also will become very frustrated upset when she cannot remember certain things. Continue current treatment for now. Discharge planning in progress Justification for Cont. Inpt. At risk for further decompensation if at lower level of care Discharge Planning Patient to return back to home once psychiatrically stable Valente Hebert MD Jul 16, 2017 08:08
[2017-07-16] MEDS: REMOVE OLD PATCH T-DERMAL SCH (09:00)
[2017-07-16] MEDS: NICOTINE 21 MG/24 HR PATCH T-DERMAL SCH (09:00)
--- NOTE | 2017-07-16 09:09 | HHI.FPPN ---
Subjective Remarks No acute events overnight. Pt sitting up in bed this AM. She reports that she is "confused and doesn't know what is going on." She is oriented to place and time. She is able to tell me that she is in [place] at the hospital. She states that her came to visit but is not sure when. She denies pain, CP , SOB, abdominal pain, and N/V. Objective Vitals Vital Signs Date Time Temp Pulse Resp B/P (MAP) Pulse Ox O2 Delivery O2 Flow Rate FiO2 07/16/17 06:00 98.4 70 17 138/73 (94) 100 07/15/17 18:00 97.9 16 128/62 (84) 97 I/O 07/15/17 07/15/17 07/15/17 07/16/17 07/16/17 07/16/17 07:00 15:00 23:00 07:00 15:00 23:00 Intake Total 120 ml 240 ml 240 ml 240 ml Balance 120 ml 240 ml 240 ml 240 ml Intake Oral 120 ml 240 ml 240 ml 240 ml # Voids 1 2 3 Result Diagram: 07/15/17 0811 Objective Remarks GENERAL: frustrated, lying in bed NEURO: Alert. Oriented x4. Normal speech. color maker grossly intact. Motor grossly normal. SKIN: Warm and dry. No rashes or erythema. HEAD: Normocephalic. Atraumatic. EYES: EOMI. No scleral icterus. No injection or drainage. ENT: No nasal drainage. Moist mucous membranes. NECK: Supple. No JVD. CARDIOVASCULAR: Regular rate and rhythm, early systolic blowing murmur heard best along left upper sternal border RESPIRATORY: Breath sounds clear to auscultation and equal bilaterally, without wheezes, rales, or rhonchi. No accessory muscle use. GASTROINTESTINAL: Abdomen soft, nontender, nondistended MUSCULOSKELETAL: No lower extremity edema. Normal range of motion. BACK: Nontender without obvious deformity. A/P Assessment and Plan 72-year-old female admitted under [place] act for suicidal attempt, found to have hypokalemia and hyponatremia on admission. Patient is medically stable and currently in med/psych unit. Discharge Planning Discharge home w/ home health PT once psychiatrically stable Problem List: (1) Overdose ICD Codes: T50.901A - Poisoning by unspecified drugs, medicaments and biological substances, accidental (unintentional), initial encounter Status: Acute Plan: Tylenol level 4.8 -> less than 2.0 UDS negative Psychiatry consulted - admitted to med/psych unit for stabilization and safety (2) Hypokalemia ICD Codes: E87.6 - Hypokalemia Status: Acute Plan: Improving, continue to monitor and replete as needed Mg level nml 2.0 (3) Hyponatremia ICD Codes: E87.1 - Hypo-osmolality and hyponatremia Status: Chronic Plan: Likely chronic and stable Continue to monitor May place on fluid restriction, regular diet for now (4) GERD (gastroesophageal reflux disease) ICD Codes: K21.9 - Gastro-esophageal reflux disease without esophagitis Status: Chronic Plan: Continue protonix 10 mg po daily (5) Chronic pain ICD Codes: G89.29 - Other chronic pain Status: Chronic Plan: Patient has a pain pump in place, following with [facility] at [place] as outpatient (6) FEN/PPX Status: Acute Plan: Fluids: PO Electrolytes: as above, continue to monitor Nutrition: Regular Deysi Chapin MD R1 Jul 16, 2017 09:09
[2017-07-16 09:26] LABS: BICARBONATE 23.7 MEQ/L (21.0-32.0); POTASSIUM 3.6 MEQ/L (3.5-5.1)
[2017-07-16] MEDS: QUEtiapine FUMARATE 25 MG TAB PO SCH ×2 (10:07→12:00)
[2017-07-16] MEDS: ACETAMINOPHEN 325 MG TAB PO PRN ×2 (10:07→20:41)
[2017-07-16] MEDS: PANTOPRAZOLE SOD 20 MG DELAYED RELEASE TAB PO SCH (10:07)
[2017-07-16] MEDS: LORazepam 1 MG TAB PO PRN (10:07)
[2017-07-16 18:43] VITALS: BP 150/70; PULSE 78; RESP 17; TEMP 97.7; O2SAT 93
[2017-07-17 00:07] LABS: BLOOD, URINE NEG (NEG); COMMENT (UR) CATH-CULT NOT IND; CULTURE IF INDICATED CATH CULTURE NOT IND; GLUCOSE,URINE NEG (NEG); KETONE, URINE NEG (NEG); NITRITE,URINE NEG (NEG); PH, URINE 6.5 (5.0-8.5); SQUAMOUS EPITHELIAL CELL URINE <1 /hpf (0-5); URINE COLOR LIGHT-YELLOW (YELLW/STRAW)
[2017-07-17 06:00] VITALS: BP 131/64; PULSE 75; RESP 17; TEMP 98.1; O2SAT 97
[2017-07-17] MEDS: PANTOPRAZOLE SOD 20 MG DELAYED RELEASE TAB PO SCH (08:36)
[2017-07-17] MEDS: QUEtiapine FUMARATE 25 MG TAB PO SCH ×2 (08:36→12:00)
[2017-07-17] MEDS: ACETAMINOPHEN 325 MG TAB PO PRN ×2 (08:37→20:59)
[2017-07-17] MEDS: NICOTINE 21 MG/24 HR PATCH T-DERMAL SCH (09:00)
[2017-07-17] MEDS: REMOVE OLD PATCH T-DERMAL SCH (10:51)
--- NOTE | 2017-07-17 11:03 | HHI.FPPN ---
Subjective Remarks Pt. medically stable. Objective Vitals Vital Signs Date Time Temp Pulse Resp B/P (MAP) Pulse Ox O2 Delivery O2 Flow Rate FiO2 07/17/17 06:00 98.1 75 17 131/64 (86) 97 07/16/17 18:43 97.7 78 17 150/70 (96) 93 I/O 07/16/17 07/16/17 07/16/17 07/17/17 07/17/17 07/17/17 07:00 15:00 23:00 07:00 15:00 23:00 Intake Total 240 ml 600 ml 1080 ml 1200 ml 120 ml Balance 240 ml 600 ml 1080 ml 1200 ml 120 ml Intake Oral 240 ml 600 ml 1080 ml 1200 ml 120 ml # Voids 3 4 7 Result Diagram: 07/16/17 0835 Objective Remarks GENERAL: medically stable. A/P Assessment and Plan 72-year-old female admitted under [place] act for suicidal attempt, found to have hypokalemia and hyponatremia on admission. Patient is medically stable and currently in med/psych unit. Pt. stable from medical standpoint. Will sign off today; reconsult if problems. Discharge Planning Discharge home w/ home health PT once psychiatrically stable Problem List: (1) Overdose ICD Codes: T50.901A - Poisoning by unspecified drugs, medicaments and biological substances, accidental (unintentional), initial encounter Status: Acute Plan: Tylenol level 4.8 -> less than 2.0 UDS negative Psychiatry consulted - admitted to med/psych unit for stabilization and safety (2) Hypokalemia ICD Codes: E87.6 - Hypokalemia Status: Acute Plan: Improving, continue to monitor and replete as needed Mg level nml 2.0 (3) Hyponatremia ICD Codes: E87.1 - Hypo-osmolality and hyponatremia Status: Chronic Plan: Likely chronic and stable Continue to monitor May place on fluid restriction, regular diet for now (4) GERD (gastroesophageal reflux disease) ICD Codes: K21.9 - Gastro-esophageal reflux disease without esophagitis Status: Chronic Plan: Continue protonix 10 mg po daily (5) Chronic pain ICD Codes: G89.29 - Other chronic pain Status: Chronic Plan: Patient has a pain pump in place, following with [facility] at [place] as outpatient (6) FEN/PPX Status: Acute Plan: Fluids: PO Electrolytes: as above, continue to monitor Nutrition: Regular Brittni Alcantar MD Jul 17, 2017 11:03
--- NOTE | 2017-07-17 11:11 | HHI.FPPN ---
Objective Vitals Vital Signs Date Time Temp Pulse Resp B/P (MAP) Pulse Ox O2 Delivery O2 Flow Rate FiO2 07/17/17 06:00 98.1 75 17 131/64 (86) 97 07/16/17 18:43 97.7 78 17 150/70 (96) 93 I/O 07/16/17 07/16/17 07/16/17 07/17/17 07/17/17 07/17/17 07:00 15:00 23:00 07:00 15:00 23:00 Intake Total 240 ml 600 ml 1080 ml 1200 ml 120 ml Balance 240 ml 600 ml 1080 ml 1200 ml 120 ml Intake Oral 240 ml 600 ml 1080 ml 1200 ml 120 ml # Voids 3 4 7 Result Diagram: 07/16/17 0835 Objective Remarks GENERAL: medically stable. A/P Assessment and Plan 72-year-old female admitted under [place] act for suicidal attempt, found to have hypokalemia and hyponatremia on admission. Patient is medically stable and currently in med/psych unit. Pt. stable from medical standpoint. Will sign off today; reconsult if problems. Discharge Planning Discharge home w/ home health PT once psychiatrically stable Problem List: (1) Overdose ICD Codes: T50.901A - Poisoning by unspecified drugs, medicaments and biological substances, accidental (unintentional), initial encounter Status: Acute Plan: Tylenol level 4.8 -> less than 2.0 UDS negative Psychiatry consulted - admitted to med/psych unit for stabilization and safety (2) Hypokalemia ICD Codes: E87.6 - Hypokalemia Status: Acute Plan: Improving, continue to monitor and replete as needed Mg level nml 2.0 (3) Hyponatremia ICD Codes: E87.1 - Hypo-osmolality and hyponatremia Status: Chronic Plan: Likely chronic and stable Continue to monitor May place on fluid restriction, regular diet for now (4) GERD (gastroesophageal reflux disease) ICD Codes: K21.9 - Gastro-esophageal reflux disease without esophagitis Status: Chronic Plan: Continue protonix 10 mg po daily (5) Chronic pain ICD Codes: G89.29 - Other chronic pain Status: Chronic Plan: Patient has a pain pump in place, following with [facility] at [place] as outpatient (6) FEN/PPX Status: Acute Plan: Fluids: PO Electrolytes: as above, continue to monitor Nutrition: Regular Deysi Chapin MD R1 Jul 17, 2017 11:11
--- NOTE | 2017-07-17 16:29 | HHI.PYPN ---
Subjective Remarks Patient seen for follow-up, chart reviewed. As per nursing report patient continued to report having pain with some dysuria but UA was negative continues to report difficulty with sleep as well as poor eye contact. Patient was found sitting on hospital bed, cooperative today. Patient states that she feels that she rested last evening and reports having visited with her but does not recall exactly what they discussed during the visit. Patient was asking for today's date as well as asking how old she was which she wanted to reassure herself as she states "okay I got that right". Patient states that she at times feels frustrated and upset that she can't remember certain things is having a difficult time trying to retain recent events. Patient also reports having difficulty with her vision is she states has been diagnosed with macular degeneration. Patient noted to be irritable rehabilitation to with staff asks her to remember certain events or certain pieces of information which will require her to recall. Financial Analysis Manager and therapist spoke with over the phone who stated that patient will likely require in-home services to 2 her current neurocognitive deficits. Patient has refused to have formal cognitive testing it is apparent to conversation interaction with staff and lyric writer that patient has difficulty with cognition. corroborates that patient has had difficulty with memory recently and progressively worsening. He agrees to have home health services along with trying to recruit additional services for the patient to ensure support supervision of the patient when she is discharged. Review of Systems Except as stated in HPI: all other systems reviewed are Neg Mental Status Examination Appearance: Appropriate Consciousness: Alert Orientation: Person, Place Speech: Unremarkable Language: Adequate Fund of Knowledge: Adequate Attention and Concentration: Inadequate Memory: Impaired Mood: Anxious, Irritable (slightly) Affect: Irritable, Labile, Anxious Thought Process & Associations: Linear Thought Content: Appropriate Hallucination Type: None Delusion Type: None Suicidal Ideation: No Suicidal Plan: No Suicidal Intention: No Homicidal Ideation: No Homicidal Plan: No Homicidal Intention: No Insight: Poor Judgment: Impulsive Results Labs Labs reviewed Test 07/16/17 22:53 Urine Color LIGHT-YELLOW Urine Turbidity CLEAR Urine pH 6.5 Urine Specific [place] 1.004 Urine Protein NEG mg/dL Urine Glucose (UA) NEG mg/dL Urine Ketones NEG mg/dL Urine Occult Blood NEG Urine Nitrite NEG Urine Bilirubin NEG Urine Urobilinogen LESS THAN 2.0 MG/DL Urine Leukocyte Esterase NEG Urine Squamous Epithelial Cells <1 /hpf Microscopic Urinalysis Comment CATH-CULT NOT IND Vitals/IOs Vital Signs Date Time Temp Pulse Resp B/P (MAP) Pulse Ox O2 Delivery O2 Flow Rate FiO2 07/17/17 06:00 98.1 75 17 131/64 (86) 97 Intake and Output 07/17/17 07/17/17 07/18/17 08:00 16:00 00:00 Intake Total 600 ml 360 ml Balance 600 ml 360 ml Assessment & Plan Problem List: (1) Dementia in other diseases classified elsewhere without behavioral disturbance ICD Codes: F02.80 - Dementia in other diseases classified elsewhere without behavioral disturbance (2) Delirium due to another medical condition ICD Codes: F05 - Delirium due to known physiological condition Status: Resolved Assessment & Plan Patient continued to be followed by medical team and has the patient medically stable and due to patient's current difficulty with cognition and memory as well as observed behavior interaction with staff during her hospitalization is likely patient has significant neurocognitive deficits at baseline but had superimposed delirium during initial presentation which likely has resolved but now continues with her neurocognitive deficits. Patient to continue current treatment. Treatment and supportive services discussed with which she is actively going to pursue once patient is discharge. Discharge planning in progress Justification for Cont. Inpt. At risk for further decompensation event lower level of care Discharge Planning Patient discharged home once psychiatrically stable Valente Hebert MD Jul 17, 2017 16:29
[2017-07-17 18:00] VITALS: BP 136/59; PULSE 74; RESP 18; TEMP 97.6; O2SAT 98
[2017-07-17] MEDS: LORazepam 0.5 MG TAB PO PRN (20:59)
[2017-07-18 06:06] VITALS: BP 126/60; PULSE 71; RESP 16; TEMP 98; O2SAT 99
[2017-07-18] MEDS: ACETAMINOPHEN 325 MG TAB PO PRN (07:12)
[2017-07-18] MEDS ORDERED: SERO25TA PO (08:08)
--- NOTE | 2017-07-18 08:16 | HHI.DS ---
Psychiatry Discharge Summary Inpatient Psychiatric care?: Yes Advance Directive: No Reason Not Provided: Due to Patient Condition Mental Health AdvanceDirective: No Health Care Proxy: No Admission Admission Date Jul 13, 2017 at 17:05 Admission Diagnosis: (1) Dementia in other diseases classified elsewhere without behavioral disturbance ICD Code: F02.80 - Dementia in other diseases classified elsewhere without behavioral disturbance (2) Delirium due to another medical condition ICD Code: F05 - Delirium due to known physiological condition Brief History Patient is a 72-year-old woman, , domicile with , unemployed and supported by her 's residential funds, with no past psychiatric history, who was admitted to the medical floor recently due to recent overdose of Percocet in a suicide attempt along with having homicidal ideations which patient was holding has been at [facility] and noted to be confused and disorganized during psychiatric consultation visit. Patient was managed for hypokalemia, hyponatremia while on the medical floor and noted transferred to the inpatient psychiatry for further evaluation and management. As per psychiatric consult note: The patient is a 72-year-old woman, domiciled with her in [place], will denies previous psychiatric history, psychiatric hospitalizations who denies previous suicidal attempts, denies history of substance abuse, but patient is not fully reliable due to level of confusion. No collateral information available at this moment, who was admitted under [facility] for suicidal attempt after taking "a handful of pills". Initially: "History severely limited secondary to patient being uncooperative and drowsy/ tired. Initially patient states "I do not know why I am here." However, on further questioning she realizes she is in the hospital. She knows it is July 2017. Patient states she took the pills sometime last night "to get out of my situation." She will not say whether or not she is suicidal. She has took one handful of an assortment of medications including Tylenol, aspirin , and Percocets. Patient states she only took one handful. She took this last night, unknown specific time period. At the time of my evaluation the ED physician contacted poison control and the current recommendations are to obtain a PT/INR, and repeat acetaminophen level tomorrow morning.Systems Limited secondary to patient cooperation. She denies chest pain, fever, chills. She does admit to having nausea and vomiting and some abdominal pain earlier today, but this is now resolved. She is mostly concerned with her who has PTSD. She is concerned with him being by himself." Tried to contact her by phone in two different occasions, , for collateral information, but he did not answer the phone. Chart was reviewed. Case discussed with nursing charge. On psychiatric evaluation patient is found in her room, she is trying to disrobed stating she is "heating". Patient says that she doesn't understand the reason she is here. But, she doesn't know what she is. She is irritable, oppositional, seems to be very confused and internally preoccupied. Patient says that she doesn't understand what she is naked "and who stole my clothing". Patient says that she doesn't remember trying to commit suicide. He does report that she has been overwhelmed, frustrated, depressed. She says that at this moment any information about her children be asked to her . At this moment she denies suicidal and homicidal ideation, she denies visual and auditory hallucinations. She denies the use of alcohol and illicit drugs. Patient was found lying in hospital bed, cooperative. Patient states that she does not recall all of the events prior to this admission and states that she remembers having picked up a couple of guns which she pointed at her and noted that she had been feeling confused but states that she did not have intention to hurt herself or her . Patient believes that she had argument with her prior to these events state that they could not get the Lexapro (to work and she had felt confused and felt that they were going to because they could not get anything to work. Patient states that she believes she had taken some "sort of medicines and that thought of killing myself". Patient states that she also feared that if her downloaded a program on the computer would wipe other accounts which she stated that he called 91 the next day. When asked about the firearms she states that she recalls having to guns in her hands and that she was "holding my has been at bay " which is pointing a gun at him and was aware that there will noted pistols. She states that she feels that her pain pump must have been involved in some way and recalls taking "handful of Percocet" and attempt to kill herself but then regretted afterwards. Currently patient states that she is feeling good this morning and not so good now talking about recent events. Patient noted to be upset talking about circumstances that prior to the hospital. At this time denies SI, HI, AVH or delusions. Continues to noted to be confused. It was reported by the patient's therapist the patient has become frustrated and resistant to formal cognitive testing. Past psychiatric history: Denies previous psychiatric diagnoses denies previous psychiatric hospitalizations, suicide attempts or self-injurious behavior. Denies history of physical or sexual abuse. Family history: Denies Substance use history: Tobacco use more than 10 years ago. Denies any alcohol or illicit drug use. Past medical history: HTN?, GERD Allergies: Sulfas, morphine, codeine Social history: Domiciled with , has two adult children one whom she is contact with and the other estranged, unemployed supported by her 's residential benefits, no background, yazidism: Gnosticist/Pentecostal, no legal history. Collateral contacts:Fior Vides () [phone]; jade (sister) Tobacco Use In Past 30 Days: No Tobacco Past 30 Days Alcohol Use: Never Hospital Course Patient is a 72-year-old woman, , domicile with , unemployed and supported by her 's residential funds, with no past psychiatric history, who was admitted to the medical floor recently due to recent overdose of Percocet in a suicide attempt along with having homicidal ideations which patient was holding has been at gunpoint and noted to be confused and disorganized during psychiatric consultation visit. Patient was managed for hypokalemia, hyponatremia while on the medical floor and noted transferred to the inpatient psychiatry for further evaluation and management. Patient was started on quetiapine 12.5mg PO BID and titrated to 25mg PO BID which she tolerated well. Patient had continued to be followed by the medical team and stabilized and patient was noted to have continued confusion which likely was due to underlying neurocognitive deficits. Patient continued to require re-orientation which was noted to feel frustrated and upset that she had difficulty with memory but was able to accept this and remain with more stable mood and accept assistance. Patient upon discharge was noted to have stable mood, understanding of necessity of increased needs and services which she accepted to have at home. Treatment team discussed with patient's treatment plan which he was supportive of and would request additional services for her at home. Patient was advised to continue treatment and follow up for continuity of care which she agreed with. Supportive psychotherapy provided. Patient advised to call 911 or go to nearest ED in case of emergency. Patient and family agree with plan. Results Blood Pressure 126 / 60 Vital Signs Date Time Temp Pulse Resp B/P (MAP) Pulse Ox O2 Delivery O2 Flow Rate FiO2 07/18/17 06:06 98.0 71 16 126/60 (82) 99 Laboratory Tests Test 07/15/17 08:11 07/16/17 08:35 07/16/17 22:53 Sodium Level 134 MEQ/L (136-145) 134 MEQ/L (136-145) Potassium Level 3.4 MEQ/L (3.5-5.1) Estimat Glomerular Filtration Rate 79 ML/MIN (>89) 81 ML/MIN (>89) Random Glucose 116 MG/DL (74-106) Laboratory Results Test 07/14/17 08:08 Cholesterol Level 169 MG/DL (120-200) HDL Cholesterol 65.2 MG/DL (40.0-60.0) Hemoglobin A1c 5.6 % (4.3-6.0) LDL Cholesterol 77 MG/DL (0-99) Triglycerides Level 133 MG/DL (42-150) Summary of Procedures None Imaging Last Impressions Head CT 07/14/17 0000 Signed Impressions: Service Date/Time: Friday, July 14, 2017 21:09 - CONCLUSION: No acute disease. Rafael Ferrer MD Pending results at discharge: No Medications # of Antipsychotic meds at D/C: 1 Approp Antipsych med options 1 - Minimum of three failed multiple trials of monotherapy. 2 - Documented plan to taper to monotherapy due to previous use of multiple meds OR cross-taper in progress at D/C. 3 - Documentation of augmentation of Clozapine. 4 - Justification other than those listed in allowable values 1-3, document here : Discharge Discharge Date: Jul 18, 2017 Discharge Diagnosis: (1) Dementia in other diseases classified elsewhere without behavioral disturbance ICD Code: F02.80 - Dementia in other diseases classified elsewhere without behavioral disturbance (2) Delirium due to another medical condition ICD Code: F05 - Delirium due to known physiological condition Status: Resolved Pt Condition on Discharge: Stable Discharge Disposition: Disch w/ Home Health Serv Discharge Instructions Diet Instructions: Heart Healthy Diet Activities you can perform: Weight Bearing as Alex Discharge Time > 30 minutes Mental Status Examination Appearance: Appropriate Consciousness: Alert Orientation: Person, Place Speech: Unremarkable Language: Adequate Fund of Knowledge: Adequate Attention and Concentration: Inadequate Memory: Impaired Mood: Appropriate, Irritable (slightly) Affect: Appropriate Thought Process & Associations: Intact, Goal directed, Linear Thought Content: Appropriate Hallucination Type: None Delusion Type: None Suicidal Ideation: No Suicidal Plan: No Suicidal Intention: No Homicidal Ideation: No Homicidal Plan: No Homicidal Intention: No Insight: Poor Judgment: Impulsive Discharge/Advance Care Plan Health Problems: (1) Dementia in other diseases classified elsewhere without behavioral disturbance (2) Delirium due to another medical condition Goals to promote your health * To prevent worsening of your condition and complications * To maintain your health at the optimal level Directions to meet your goals Take your medications as prescribed Follow your dietary instruction Follow activity as directed Keep your appointments as scheduled Take your immunizations and boosters as scheduled If your symptoms worsen call your PCP, if no PCP go to Urgent Care Center or Emergency Room For 27/02 questions related to your inpatient stay or results of tests pending at discharge, please contact Dr. Valente Hebert at Smoking is Dangerous to Your Health. Avoid second hand smoking Valente Hebert MD Jul 18, 2017 08:16
[2017-07-18] MEDS: REMOVE OLD PATCH T-DERMAL SCH (09:00)
[2017-07-18] MEDS: NICOTINE 21 MG/24 HR PATCH T-DERMAL SCH (09:00)
[2017-07-18] MEDS: PANTOPRAZOLE SOD 20 MG DELAYED RELEASE TAB PO SCH (09:52)
[2017-07-18] MEDS: QUEtiapine FUMARATE 25 MG TAB PO SCH ×2 (09:52→11:50)
== END 2017-07-18 11:55 | disposition home health service (06) | DRG 880 ==
LOC: H4EA 17:05
PROVIDERS: ADMIT Student in an Organized Health Care Education/Training Program; ATTEND Student in an Organized Health Care Education/Training Program
DX: F05 Delirium due to known physiological condition (principal); E87.1 Hypo-osmolality and hyponatremia; F02.80 Dementia in other diseases classified elsewhere, unspecified severity, without behavioral disturbance, psychotic disturbance, mood disturbance, and anxiety; I10 Essential (primary) hypertension; Z91.5 Personal history of self-harm; E87.6 Hypokalemia; K21.9 Gastro-esophageal reflux disease without esophagitis; G89.29 Other chronic pain; H35.30 Unspecified macular degeneration; R41.9 Unspecified symptoms and signs involving cognitive functions and awareness
CPT/HCPCS: 70450; 80048; 80061; 81001; 83036; 83735